=== PATIENT | male | born 1955 ===

== ENCOUNTER 2021-11-04 11:15 | Inpatient (IN) | payer OTHER ==
[~2021-11-04] VITALS: Ht 182.9 cm; Wt 86.2 kg
[2021-11-04] MEDS ORDERED: ZESTRIL40 M1 PO (13:40)
[2021-11-04] MEDS ORDERED: TOPROL XL25 M1 PO (13:40)
[2021-11-04] MEDS ORDERED: SYNTHROID137 MCG PO (13:41)
[2021-11-09] MEDS ORDERED: COLACE100 MG PO (10:21)
[2021-11-09] MEDS ORDERED: AMOX-CLAV 875-1 EACH PO (10:22)
[2021-11-09] MEDS ORDERED: NEURONTIN800 MG PO (10:22)
[2021-11-09] MEDS ORDERED: PERCOCET 5-3251 EACH PO (10:22)
[2021-11-09] MEDS ORDERED: MEDROLPACK PO (10:22)
== END 2021-11-10 14:50 | disposition home or self-care (01) | DRG 520 ==
LOC: O/R 11-09 06:34 → PED 11-09 06:34 → SURH 11-09 10:30 → PED 11-09 22:16
PROVIDERS: ADMIT Orthopaedic Surgery Orthopaedic Surgery of the Spine; ATTEND Orthopaedic Surgery Orthopaedic Surgery of the Spine
PROC: 00NY0ZZ Release Lumbar Spinal Cord, Open Approach (ICD-10-PCS; principal; 2021-11-09 10:30)
DX: M48.062 Spinal stenosis, lumbar region with neurogenic claudication (principal)